=== PATIENT | female | born 1970 | race Asian ===

== ENCOUNTER 2020-02-04 10:12 | Emergency (ER) | payer BC ==
--- NOTE | 2020-02-04 12:19 | RAD ---
CHEST PA LATERAL History: Cough Comparison: June 26, 2011 Findings: No consolidation or pleural effusion. Normal heart size. No pneumothorax. Impression: 1. No acute cardiopulmonary process. Electronically signed by: Timothy Oliver DO (02/04/2020 12:16 PM) [id number]
[2020-02-04 12:57] LABS: INFLUENZA A PATIENT NEGATIVE (NEGATIVE); INFLUENZA B PATIENT NEGATIVE (NEGATIVE)
== END 2020-02-04 13:34 | disposition home or self-care (01) ==
LOC: ER 10:12
DX: R50.9 Fever, unspecified (principal); R05 Cough
CPT/HCPCS: 71046; 87804; 99284